=== PATIENT | female | born 1990 | race African-American/Black ===

== ENCOUNTER 2019-02-17 20:19 | Emergency (ER) | payer OTHER ==
[~2019-02-17] VITALS: Ht 175.3 cm; Wt 83.0 kg
[~2019-02-17 20:19] MED LIST: AMOX500C2 PO; DOXY1TAB3 PO
[2019-02-17 20:21] VITALS: Ht 175.3 cm; Wt 83.0 kg
[2019-02-17] MEDS ORDERED: SOD CHLORIDE 0.9% 1,000 ML IV STA (20:33)
[2019-02-17] MEDS ORDERED: ONDANSETRON 4 MG INJ IV STA (20:33)
--- NOTE | 2019-02-17 20:43 | ERD ---
ER Documentation Chief Complaint Chief Complaint " I cant hold anything down". 9 wks . HPI This patient is a pleasant 28-year-old female who is G5, presenting to the emergency department complaining of intermittent nausea and vomiting for the past 2 weeks. She is reportedly 9 weeks . She has had an ultrasound during this with heart tones and IUP present. Symptoms have worsened over the past 2 days. She states she had multiple episodes of nonbilious and nonbloody vomiting today. Additionally, she complains of pus from her back right lower molar for the past several days. She denies any abdominal pain, vaginal discharge, pelvic pain, vaginal bleeding, fevers, chills, or other symptoms at this time. ROS All systems reviewed and are negative except as per history of present illness. Medications Home Meds Active Scripts Amoxicillin* (Amoxicillin*) 500 Mg Cap, 500 MG PO TID for 10 Days, CAP Prov:STEFANY RUDD PA-C 02/17/19 Doxylamine/Pyridoxine Hcl (AGNES FORBES 10-10 MG TABLET) 1 Each Tablet., 1 TAB PO QHS, #10 TAB Prov:STEFANY RUDD PA-C 02/17/19 Allergies Allergies: Coded Allergies: No Known Allergy (Unverified , 02/17/19) PMhx/Soc Medical and Surgical Hx: pt denies Medical Hx FmHx Family History: No diabetes Physical Exam Vitals Vital Signs Date Temp Pulse Resp B/P (MAP) Pulse Ox O2 O2 Flow FiO2 Time Delivery Rate 02/17/19 98.6 60 16 105/65 100 Room Air 21:55 (78) 02/17/19 96.6 76 18 124/68 97 20:21 (86) Physical Exam Const: No acute distress Head: Atraumatic Eyes: Normal Conjunctiva ENT: Normal External Ears, Nose and Mouth. There is a probable early dental abscess noted to the right lower molar region. There is pus present. There is no significant jaw swelling or facial erythema. Neck: Full range of motion. No meningismus. Resp: Clear to auscultation bilaterally Cardio: Regular rate and rhythm, no murmurs Abd: Soft, non tender, non distended. Normal bowel sounds. No rebound tenderness or guarding. No McBurney's point tenderness. No pelvic tenderness to palpation. Skin: No petechiae or rashes Back: No midline or flank tenderness Ext: No cyanosis, or edema Neur: Awake and alert Psych: Normal Mood and Affect Result Diagram: 02/17/19205202/17/192052 Results 24 hrs Laboratory Tests Test 02/17/19 20:53 White Blood Count 6.0 10^3/ul Red Blood Count 4.98 10^6/ul Hemoglobin 13.3 g/dl Hematocrit 40.1 % Mean Corpuscular Volume 80.5 fl Mean Corpuscular Hemoglobin 26.7 pg Mean Corpuscular Hemoglobin Concent 33.2 g/dl Red Cell Distribution Width 12.8 % Platelet Count 225 10^3/UL Mean Platelet Volume 11.4 fl Immature Granulocytes % 0.200 % Neutrophils % 56.9 % Lymphocytes % 30.0 % Monocytes % 10.6 % Eosinophils % 1.3 % Basophils % 1.0 % Nucleated Red Blood Cells % 0.0 /100WBC Immature Granulocytes # 0.010 10^3/ul Neutrophils # 3.4 10^3/ul Lymphocytes # 1.8 10^3/ul Monocytes # 0.6 10^3/ul Eosinophils # 0.1 10^3/ul Basophils # 0.1 10^3/ul Nucleated Red Blood Cells # 0.0 10^3/ul Sodium Level 137 mmol/L Potassium Level 4.3 mmol/L Chloride Level 101 mmol/L Carbon Dioxide Level 27 mmol/L Anion Gap 9 Blood Urea Nitrogen 11 mg/dl Creatinine 0.84 mg/dl Est Glomerular Filtrat Rate mL/min > 60 mL/min Glucose Level 95 mg/dl Calcium Level 10.2 mg/dl Total Bilirubin 0.5 mg/dl Direct Bilirubin 0.00 mg/dl Indirect Bilirubin 0.5 mg/dl Aspartate Amino Transf (AST/SGOT) 23 IU/L Alanine Aminotransferase (ALT/SGPT) 17 IU/L Alkaline Phosphatase 57 IU/L Total Protein 8.8 g/dl Albumin 4.7 g/dl Globulin 4.10 g/dl Albumin/Globulin Ratio 1.14 Current Medications Medications Dose Sig/Dilia Start Time Status Last (Trade) Ordered Route PRN Stop Time Admin Dose Reason Admin Sodium 1,000 ml @ Q1H STAT 02/17/19 DC 02/17/19 Chloride 1,000 mls/hr IV 20:33 20:49 7/21/19 21:32 Ondansetron 4 mg ONCE STAT 02/17/19 DC 02/17/19 HCl (Zofran IV 20:33 20:50 Inj) 02/17/19 20:35 Amoxicillin 500 mg ONCE ONCE 02/17/19 DC 02/17/19 PO 21:00 21:02 (Amoxicillin) 02/17/19 21:01 Procedures/MDM 28-year-old female presented to the emergency department complaining of intermittent nausea and vomiting as well as pus from the right lower molar region. Patient was immediately placed into a stretcher. She was not actively vomiting. She was administered 1 L normal saline intravenously. She was administered 4 mg Zofran IV. She was significantly improved on reevaluation. She was given amoxicillin 500 mg tab for probable dental infection. CBC: no e/o of systemic infection or severe anemia CMP: no e/o severe acidosis, alkalosis, renal failure, diabetic ketoacidosis, liver disease Medical decision making: She had stable vital signs and she was afebrile and nontoxic and well-appearing. I doubt Teo's angina, deep space infection, serious bacterial infection, sepsis, ectopic , tubo-ovarian abscess, ovarian torsion, PID, or other emergencies at this time. The patient was stable and appropriate for discharge and further outpatient management. She was advised to have 24 to 48-hour follow-up with her primary care physician and [employer] physician and return here immediately for any new, worsening, or concerning symptoms. She understands and agrees with the diagnosis, plan, need for follow-up, and return precautions. Departure Diagnosis: Primary Impression: Hyperemesis gravidarum Additional Impression: Dental infection Condition: Fair Additional Instructions: Follow up with your PCP within the next 1-3 days for a repeat evaluation. If you require a referral to a specialist, your Primary Care Provider may be able to provide this for you. In most patient cases, a referral is not required. If you have further questions regarding this matter, please ask your Primary Care Provider. Return the the emergency department immediately if symptoms worsen or change. If you have any questions regarding medications, ask your pharmacist or us before you leave. If any adverse reactions, occur while taking your medications, discontinue the treatment and return to the emergency department immediately. If any new or worsening symptoms, uncontrolled fevers, or other unexplained symptoms occur, return to the emergency department immediately. Take your medications as directed, and complete the entire course of treatment. STEFANY RUDD PA-C Feb 17, 2019 20:43
[2019-02-17] MEDS ORDERED: AMOXICILLIN 500 MG CAP PO ONE (21:00)
[2019-02-17 21:55] VITALS: BP 105/65; PULSE 60; RESP 16
== END 2019-02-17 21:56 | disposition home or self-care (01) ==
LOC: FTE 20:19
DX: O21.0 Mild hyperemesis gravidarum (principal); K04.7 Periapical abscess without sinus; O99.611 Diseases of the digestive system complicating pregnancy, first trimester; Z3A.00 Weeks of gestation of pregnancy not specified
CPT/HCPCS: 36415; 80053; 85025; 96361; 96374; J2405; J7030; Z7502; Z7610

== ENCOUNTER 2019-03-22 19:06 | Emergency (ER) | payer OTHER ==
[~2019-03-22] VITALS: Ht 172.7 cm; Wt 80.2 kg
[~2019-03-22 19:06] MED LIST changes: +CEPH-443 PO; +ONDA4TAB14 PO
[2019-03-22 19:31] VITALS: Ht 172.7 cm; Wt 80.2 kg
[2019-03-22] MEDS ORDERED: ONDANSETRON 4 MG INJ IV STA (20:13)
[2019-03-22] MEDS ORDERED: SOD CHLORIDE 0.9% 1,000 ML IV STA (20:13)
[2019-03-22 22:51] VITALS: BP 111/66; PULSE 15; RESP 18
== END 2019-03-22 22:53 | disposition home or self-care (01) ==
LOC: FTE 19:06
DX: O23.42 Unspecified infection of urinary tract in pregnancy, second trimester (principal); R10.2 Pelvic and perineal pain; Z3A.14 14 weeks gestation of pregnancy
CPT/HCPCS: 36415; 76805; 80053; 81001; 84702; 85025; 86900; 86901; 87086; 96361; 96374; J2405; J7030; Z7502